=== PATIENT | male | born 1995 | race Caucasian/White ===

== ENCOUNTER → 2017-02-16 | Outpatient (CLI) | payer OTHER ==
[~2017-02-16] MED LIST: NAPR-1169 PO
== END | disposition home or self-care (01) ==
LOC: C.RDSM 10:25
PROVIDERS: ATTEND Family Medicine
DX: R22.42 Localized swelling, mass and lump, left lower limb (principal)

== ENCOUNTER 2017-02-17 03:16 | Emergency (ER) | payer OTHER ==
[~2017-02-17] VITALS: Ht 188 cm; Wt 129.7 kg
[2017-02-17 03:21] VITALS: TEMP 36.7; Ht 188 cm; Wt 129.7 kg
[2017-02-17] MEDS ORDERED: NAPR-1169 PO (03:30)
[2017-02-17 04:56] LABS: BUN/CREATININE RATIO 11.9 (10-20); CALCIUM 8.9 mg/dl (8.5-10.1); CREATININE 1.6 mg/dl (0.60-1.40); POTASSIUM 3.3 mmol/L (3.5-5.1)
--- NOTE | 2017-02-17 05:03 | EMERGENCY ROOM VISIT NOTE ---
History Report prepared by Yandy: Kristi Aguayo Under the Supervision of: Dr. Mara Rodney D.O. First contact with patient: :17 Chief Complaint: ALCOHOL OVERDOSE Stated Complaint: ALCOHOL OVERDOSE Nursing Triage Summary: Passed out at [facility], initially disoriented, ran and caught by police, now alert and oriented. History of Present Illness The patient is a 22 year old male who presents to the Emergency Room with persistent alcohol intoxication starting [employer]. The patient presents to the ED by EMS. He was found passed out at [facility]. When he was woken up, he was disoriented and ran from EMS. The police were called to get him. The patient remembers going to [facility] after leaving the bar. The next thing he remembers is being in the ED. He denies any falls or getting into any fights as far as he can remember. He admits to alcohol use, but denies any other drug use. He denies having any pain. Source of History: patient Onset: [employer] Position: other (global) Quality: other (alcohol intoxication) Timing: other (persistent) Note: Pt denies any fall or pain. Review of Systems See HPI for pertinent positives & negatives. A total of 10 systems reviewed and were otherwise negative. Past Medical & Surgical Medical Problems: (1) No chronic problems Family History No pertinent family history stated. Social History Smoking Status: Never Smoker Occupation Status: [employer] student Current/Historical Medications Scheduled PRN Naproxen (Naprosyn), 500 MG PO BID PRN for Pain Allergies Coded Allergies: No Known Allergies (Unverified , 02/17/17) Physical Exam Vital Signs Date Time Temp Pulse Resp B/P (MAP) Pulse Ox O2 Delivery O2 Flow Rate FiO2 02/17/17 05:08 120 24 127/72 93 02/17/17 03:46 114 25 92 02/17/17 03:29 136/87 02/17/17 03:26 139 02/17/17 03:21 137/86 02/17/17 03:21 36.7 135 16 137/86 97 Room Air Physical Exam GENERAL: smells of EtOH, alert, well appearing, well nourished, no distress, non -toxic, no evidence of trauma EYE EXAM: normal conjunctiva, PERRL and EOM's grossly intact OROPHARYNX: no exudate, no erythema, lips, buccal mucosa, and tongue normal and mucous membranes are moist NECK: supple, no nuchal rigidity, no adenopathy, non-tender LUNGS: Clear to auscultation. Normal chest wall mechanics, no w/r/r HEART: no murmurs, S1 normal and S2 normal ABDOMEN: abdomen soft, non-tender, normo-active bowel sounds, no masses, no rebound or guarding. BACK: Back is symmetrical on inspection and there is no deformity, no midline tenderness, no CVA tenderness. SKIN: no rashes and no bruising UPPER EXTREMITIES: upper extremities are grossly normal. Nml rom, nml pulses LOWER EXTREMITIES: No pitting edema, nml ROM, nml pulses. NEURO EXAM: Normal sensorium, cranial nerves II-XII grossly intact, normal speech, no gross weakness of arms, no gross weakness of legs. Medical Decision & Procedures Laboratory Results 02/17/17 03:20 Test 02/17/17 03:20 Anion Gap 12.0 mmol/L (3-11) Est Creatinine Clear Calc Drug Dose 104.6 ml/min Estimated GFR () 70.3 Estimated GFR (Non- 60.7 BUN/Creatinine Ratio 11.9 (10-20) Calcium Level 8.9 mg/dl (8.5-10.1) Ethyl Alcohol mg/dL 206.0 mg/dl (0-3) Laboratory results per my review. ED Course 0425: The patient was evaluated in room B9. A complete history and physical exam was performed. 0504: Upon reevaluation, the patient is standing and dressed. He feels well. I discussed the findings and the treatment plan with the patient and his sober friend. They verbalize agreement and understanding. He was discharged home with his sober ride. Medical Decision Differential diagnosis: Etiologies such as alcohol intoxication, toxicologic, infection, hypoglycemia, electrolyte abnormalities, cardiac sources, intracerebral event, neurologic, as well as others were entertained. Pt well-appearing here, clinically sober at this time, no history of trauma and no physical evidence of trauma patient denies any pain. Patient was able to call for a friend who is a sober buggy driver. Friend understands symptoms to monitor for, reasons to return the ER. Discussed with patient follow-up with family doctor regarding mild elevation of creatinine as well as mild hypokalemia. Discussed all this with bedside, encouraged increased water intake. I've a low suspicion for occult traumatic injury, or occult renal dysfunction. Medication Reconcilliation Current Medication List: was personally reviewed by me Blood Pressure Screening Patient's blood pressure: Elevated blood pressure Blood pressure disposition: Elevated BP felt to be situational Impression Primary Impression: Alcoholic intoxication Additional Impressions: Acute renal insufficiency Hypokalemia Scribe Attestation The scribe's documentation has been prepared under my direction and personally reviewed by me in its entirety. I confirm that the note above accurately reflects all work, treatment, procedures, and medical decision making performed by me. Departure Information Dispostion Home / Self-Care Referrals David Farooq M.D. (PCP) Patient Instructions My [facility] Additional Instructions Please drink more water. Please have your kidney number and potassium level rechecked as your kidney number was slightly high and your potassium number slightly low. Foods rich in potassium include bananas and orange juice. If you have any headaches, vomiting, cramps, weakness, difficulty urinating, vomiting, fevers, neck or back pain, or you have any other new or concerning symptoms, please return to the emergency room. Problem Qualifiers Primary Impression: Alcoholic intoxication Complication of substance-induced condition: uncomplicated Qualified Codes: F10.920 - Alcohol use, unspecified with intoxication, uncomplicated
[2017-02-17 05:08] VITALS: BP 127/72; PULSE 120; O2SAT 93
== END 2017-02-17 05:08 | disposition home or self-care (01) ==
LOC: EDBD 03:16 → C.EDB 03:17
DX: F10.129 Alcohol abuse with intoxication, unspecified (principal); Y90.7 Blood alcohol level of 200-239 mg/100 ml; N28.9 Disorder of kidney and ureter, unspecified; E87.6 Hypokalemia